=== PATIENT | female | born 1965 | race Caucasian/White ===

== ENCOUNTER → 2017-09-03 | Outpatient (CLI) | payer MEDICARE, OTHER ==
[~2017-09-03] MED LIST: LEVSOD100 PO
[2017-09-03 19:14] LABS: Creatinine, Urine Random 14.3 mg/dL (27.00-270.00)
[2017-09-03 19:17] LABS: Microalb/Creat Ratio UR, Rand 127.273 mg/g (0.000-30.000); Microalbumin, Random Urine 18.2 mg/L (0.000-20.000)
== END ==
LOC: LAB 16:17 → LAB SHORT 16:17
PROVIDERS: Nurse Practitioner Family
DX: E11.9 Type 2 diabetes mellitus without complications (principal)
CPT/HCPCS: 82043; 82570

== ENCOUNTER → 2022-08-15 | Outpatient (CLI) | payer MEDICARE, OTHER ==
[2022-08-15 19:52] LABS: Albumin, Blood 3.5 g/dL (3.4-5.0); Alk Phos 116 U/L (50-136); Anion Gap 7 mmol/L (6-16); Aspartate Aminotrans (AST/SGOT 80 U/L (12-37); Blood Urea Nitrogen 15 mg/dL (8-24); CHOL/HDL RATIO 3.8; CO2, Blood 26 mmol/L (21-32); Calcium, Blood 9.5 mg/dL (8.5-10.1); Chloride, Blood 108 mmol/L (98-108); Cholesterol 204 mg/dL (50-200); Glucose, Blood 140 mg/dL (70-99); HDL Cholesterol 54 mg/dL (>39); LDL/HDL RATIO 2.2; Low Density Lipoprotein Chol 118 mg/dL (0-110); Potassium, Blood 3.7 mmol/L (3.5-5.5); Sodium, Blood 141 mmol/L (136-145); Triglycerides 161 mg/dL (30-160); Very Low Density Lipoprot Chol 32 mg/dL (6-32)
[2022-08-15 20:02] LABS: Alanine Aminotransfer (ALT/SGP 121 U/L (12-78); Albumin/Globulin Ratio 0.9 (0.8-1.8); Bilirubin, Total 0.3 mg/dL (0.1-1.0); Bun/Creatinine Ratio 15.6 (12.0-20.0); Creatinine, Blood 0.96 mg/dL (0.40-1.00); Globulin, Blood 3.9 g/dL (2.2-4.0); Glomerular Filtration Rate 69 (60-); Total Protein, Blood 7.4 g/dL (6.4-8.2)
== END | disposition home or self-care (01) ==
LOC: LAB 17:52 → LAB SHORT 17:52
PROVIDERS: Family Medicine
DX: E11.9 Type 2 diabetes mellitus without complications (principal); E03.9 Hypothyroidism, unspecified
CPT/HCPCS: 80053; 80061; 82043; 84443

== ENCOUNTER 2023-03-30 14:42 | Observation (INO) | payer MEDICARE, OTHER ==
[~2023-03-30] VITALS: Ht 154.9 cm; Wt 103.4 kg
[~2023-03-30 14:42] MED LIST changes: -HUMALOG KW100 UNIT/1 SC; -POTA10T PO; -ROSUVASTATIN CAL5 MG PO; -TOUJEO MAX300 UNIT/2 SC; -ZESTRIL40 M1 PO
[2023-03-30 15:02] VITALS: BP 127/71
[2023-03-30] MEDS ORDERED: FLU VACC QS2023-24(6MOS UP)/PF 60 MCG/0.5 ML SYRINGE IM SCH (15:45)
[2023-03-30] MEDS ORDERED: NS 1,000 ML IV SCH (15:55)
[2023-03-30] MEDS ORDERED: Potassium Chloride 40 MEQ in NS 250 ML IV ONE (16:00)
[2023-03-30] MEDS ORDERED: Cyclobenzaprine HCl 10 MG Tab PO PRN (16:05)
[2023-03-30] MEDS ORDERED: Insulin Human Lispro 100 Units/ML 3ML Syringe SC SCH ×2 (16:30→17:30)
--- NOTE | 2023-03-30 17:11 | NUR ---
PT WAS A DIRECT ADMIT ARRIVING AT 1500. PT IS INDEPENDENT IN ROOM AND AOX4. PT HAS CALL LIGHT WITHIN REACH AND DENIES ANY PAIN. RA AND NO DISTRESS NOTED AT THIS TIME. WILL CONTINUE TO MONITOR.
[2023-03-30 19:17] VITALS: BP 132/83
[2023-03-30] MEDS ORDERED: ZESTRIL40 M1 PO (20:06)
[2023-03-30] MEDS ORDERED: ROSUVASTATIN CAL5 MG PO (20:07)
[2023-03-30] MEDS ORDERED: TOUJEO MAX300 UNIT/2 SC (20:09)
[2023-03-30] MEDS ORDERED: Insulin Glargine-Yfgn 100 Unit/mL 3 ML SYR SC SCH (21:00)
[2023-03-31 04:11] VITALS: BP 136/97
[2023-03-31 05:06] LABS: BASOPHILS ABSOLUTE AUTO 0.01 K/mm3 (0.00-0.23); BASOPHILS PERCENT AUTO 0 % (0-2); EOSINOPHILS ABSOLUTE AUTO 0.01 K/mm3 (0.00-0.68); EOSINOPHILS PERCENT AUTO 0 % (0-6); Hematocrit 39.2 % (33.0-51.0); IMMATURE GRAN ABSOLUTE AUTO 0.02 K/mm3 (0.00-0.10); IMMATURE GRAN PERCENT AUTO 0 % (0-1); LYMPHOCYTES ABSOLUTE AUTO 2.78 K/mm3 (0.84-5.20); LYMPHOCYTES PERCENT AUTO 50 % (21-46); MONOCYTES ABSOLUTE AUTO 0.65 K/mm3 (0.16-1.47); MONOCYTES PERCENT AUTO 12 % (4-13); Mean Corpuscular HGB 32.4 pg (26.0-34.0); Mean Corpuscular HGB Conc 35.7 g/dL (31.5-36.5); Mean Corpuscular Volume 91 fL (80-100); Mean Platelet Volume 11.8 fL (9.1-12.4); NEUTROPHILS ABSOLUTE AUTO 2.08 K/mm3 (1.96-9.15); NEUTROPHILS PERCENT AUTO 37 % (41-73); Platelet Count 158 K/mm3 (150-400); RDW Coefficient Variation 11.7 % (11.7-14.2); RDW Standard Deviation 38.9 fL (35.1-46.3); Red Blood Cell Count 4.32 M/mm3 (3.80-5.20); White Blood Cell Count 5.55 K/mm3 (4.00-11.30)
[2023-03-31 05:38] LABS: Albumin, Blood 3.2 g/dL (3.4-5.0); Anion Gap 3 mmol/L (6-16); Blood Urea Nitrogen 15 mg/dL (8-24); CO2, Blood 29 mmol/L (21-32); Calcium, Blood 8.5 mg/dL (8.5-10.1); Chloride, Blood 107 mmol/L (98-108); Glomerular Filtration Rate 65 (60-); Glucose, Blood 144 mg/dL (70-99); Magnesium, Blood 1.9 mg/dL (1.6-2.4); Phosphorus, Blood 2.1 mg/dL (2.5-4.9); Potassium, Blood 3.4 mmol/L (3.5-5.5)
[2023-03-31 05:48] LABS: Sodium, Blood 139 mmol/L (136-145)
[2023-03-31] MEDS ORDERED: Levothyroxine Sodium 0.15 MG Tab PO SCH (06:00)
[2023-03-31] MEDS ORDERED: Potassium Phosphate Dibasic 20 MM in Dextrose 5% 500 ML IV STA (07:01)
[2023-03-31 07:53] VITALS: BP 135/112
[2023-03-31] MEDS ORDERED: Heparin Sodium,Porcine 5,000 UNIT/0.5 ML SDV SC SCH (09:00)
[2023-03-31] MEDS ORDERED: HUMALOG KW100 UNIT/1 SC (11:34)
[2023-03-31] MEDS ORDERED: POTA10T PO (11:35)
--- NOTE | 2023-03-31 13:16 | NUR ---
PATIENT DISCHARGED TO HOME ACCOMPANIED BY HER SPOUSE. IV SALINE LOCK REMOVED WITHOUT INCIDENT. DISCUSSED D/C INSTRUCTIONS AT LENGTH, BUT PATIENT FINALLY STATED THAT SHE UNDERSTOOD THE D/C INSTRUCTIONS. OFF UNIT VIA W/C AT 1314. NO PERSONAL BELONGINGS LEFT BEHIND IN ROOM.
== END 2023-03-31 13:10 | disposition home or self-care (01) ==
LOC: MEDS 14:42 → ENPENDDIS 03-31 10:32 → MEDS 03-31 13:10
PROVIDERS: ADMIT Family Medicine
DX: N17.9 Acute kidney failure, unspecified (principal); E87.1 Hypo-osmolality and hyponatremia; E87.6 Hypokalemia; Z79.4 Long term (current) use of insulin; E11.9 Type 2 diabetes mellitus without complications; I10 Essential (primary) hypertension; E03.9 Hypothyroidism, unspecified
CPT/HCPCS: 36415; 80069; 82947; 83735; 85025; 96374; 96376; A9270; G0378; G0379; J1815; J3480; J7030; J7050; J7060

== ENCOUNTER → 2023-03-30 | Outpatient (CLI) | payer MEDICARE, OTHER ==
[~2023-03-30] MED LIST changes: +HUMALOG KW100 UNIT/1 SC; +POTA10T PO; +ROSUVASTATIN CAL5 MG PO; +TOUJEO MAX300 UNIT/2 SC; +ZESTRIL40 M1 PO
[2023-03-30 12:14] LABS: BASOPHILS ABSOLUTE AUTO 0.01 K/mm3 (0.00-0.23); BASOPHILS PERCENT AUTO 0 % (0-2); EOSINOPHILS ABSOLUTE AUTO 0.01 K/mm3 (0.00-0.68); EOSINOPHILS PERCENT AUTO 0 % (0-6); Hematocrit 41.8 % (33.0-51.0); Hemoglobin 14.9 g/dL (11.5-16.0); IMMATURE GRAN ABSOLUTE AUTO 0.02 K/mm3 (0.00-0.10); IMMATURE GRAN PERCENT AUTO 0 % (0-1); LYMPHOCYTES ABSOLUTE AUTO 2.08 K/mm3 (0.84-5.20); LYMPHOCYTES PERCENT AUTO 39 % (21-46); MONOCYTES ABSOLUTE AUTO 0.56 K/mm3 (0.16-1.47); MONOCYTES PERCENT AUTO 11 % (4-13); Mean Corpuscular HGB 32.5 pg (26.0-34.0); Mean Corpuscular HGB Conc 35.6 g/dL (31.5-36.5); Mean Corpuscular Volume 91 fL (80-100); Mean Platelet Volume 12.2 fL (9.1-12.4); NEUTROPHILS ABSOLUTE AUTO 2.63 K/mm3 (1.96-9.15); NEUTROPHILS PERCENT AUTO 50 % (41-73); Platelet Count 166 K/mm3 (150-400); RDW Coefficient Variation 11.9 % (11.7-14.2); RDW Standard Deviation 39.8 fL (35.1-46.3); Red Blood Cell Count 4.59 M/mm3 (3.80-5.20); White Blood Cell Count 5.31 K/mm3 (4.00-11.30)
[2023-03-30 12:27] LABS: Albumin, Blood 3.6 g/dL (3.4-5.0); Albumin/Globulin Ratio 0.8 (0.8-1.8); Bilirubin, Total 0.4 mg/dL (0.1-1.0); Bun/Creatinine Ratio 10.6 (12.0-20.0); Calcium, Blood 9.2 mg/dL (8.5-10.1); Creatinine, Blood 1.99 mg/dL (0.40-1.00); Globulin, Blood 4.3 g/dL (2.2-4.0); Potassium, Blood 3.1 mmol/L (3.5-5.5); Total Protein, Blood 7.9 g/dL (6.4-8.2)
== END ==
LOC: LAB SHORT 12:10 → LAB 12:10
PROVIDERS: Emergency Medicine
DX: R53.83 Other fatigue (principal)
CPT/HCPCS: 80053; 85025

== ENCOUNTER 2024-11-17 08:49 | Emergency (ER) | payer MEDICARE, OTHER ==
[~2024-11-17] VITALS: Ht 154.9 cm; Wt 106.6 kg
[~2024-11-17 08:49] MED LIST changes: +AMOCLA875 PO; +ASPI81CH PO; +BASAGLAR K100 UNIT/3 SC; +CHLO25B PO; +Cyclobenzaprine5 MG PO; +FEROSUL325 M1 PO; +FT SENNA-S 8.61 EACH PO; +GABA300 PO; +HUMALOG KW100 UNIT/1 SC; +LEVSOD112 PO; +LISI20 PO; +ONDA4ODT MM; +POTA10T PO; +Percocet 5-3251 EACH PO; +RISP1 PO; +ROSUVASTATIN CAL5 MG PO; +TOUJEO MAX300 UNIT/2 SC; +VISBIOME 112.51 EACH PO; +ZESTRIL40 M1 PO
[2024-11-17 09:35] VITALS: BP 159/108
[2024-11-17] MEDS ORDERED: NYSTATIN100000 U10 PO (09:42)
== END 2024-11-17 09:41 | disposition home or self-care (01) ==
LOC: ER 08:49
DX: B37.0 Candidal stomatitis (principal)
CPT/HCPCS: 99282